=== PATIENT | female | born 1960 | race Caucasian/White ===

== ENCOUNTER → 2017-07-22 12:07 | Outpatient (CLI) | payer OTHER, SELFPAY ==
--- NOTE | 2017-07-22 12:13 | BI_ITS ---
MAMMOGRAPHY - BILATERAL SCREENING REASON FOR EXAM: Female, 57 years old. Routine annual screening examination. PERTINENT HISTORY: Mother with breast cancer. TECHNIQUE: Digital bilateral breast stefania (3D mammographic acquisition) in the CC and MLO projections. 2-D mediolateral oblique (MLO) and craniocaudad (CC) views of both breasts were obtained. CAD: Full Field Digital Mammography with Computer Added Detection was performed. COMPARISON: Comparison is made with prior study dated June 01, 2016 and May 19, 2015. FINDINGS: Breast Composition: There are scattered areas of fibroglandular density. There are no dominant masses or suspicious calcifications. No other significant abnormalities are identified. There has been no significant change since the prior study. BI/SCREENING MAMM (CAD), BILAT IMPRESSION: Stable bilateral screening mammogram. Yearly follow-up mammogram recommended. (A) ASSESSMENT CATEGORY: BIRADS Category 1: Negative. A letter regarding these results will be sent to the patient by the facility within 30 days. Approximately 10% of breast cancers are not detected by mammography. A normal mammogram should not delay biopsy of a clinically suspicious abnormality. [id number] Electronically Signed: Lowell Fall MD at 13:42 EDT Tel [phone], Service support ,
== END ==
PROVIDERS: Family Provider Internal Medicine; PCP Internal Medicine; Visit Provider Internal Medicine
DX: Z12.31 Encounter for screening mammogram for malignant neoplasm of breast (principal)
CPT/HCPCS: 77063; 77067

== ENCOUNTER → 2017-07-23 13:01 | Outpatient (CLI) | payer OTHER, SELFPAY ==
--- NOTE | 2017-07-23 13:07 | BD_ITS ---
STUDY: DUAL ENERGY X-RAY ABSORPTIOMETRY / DXA REASON FOR EXAM: Female, 57 years old. The patient is postmenopausal. No loss of height. TECHNIQUE: Bone Mineral Density (BMD) measurements of lumbar spine and bilateral hips were obtained. COMPARISON: Comparison is made with prior study dated June 09, 2008. FINDINGS: Lumbar Spine (L1-L4): g/cm2 (1.051) / T-score (-1.1) / Z-score (-0.2) Findings are suggestive of osteopenia with a moderate fracture risk. Left Femur Total: g/cm2 (0.854) / T-score (-1.2) / Z-score (-0.5) Left Femoral Neck: g/cm2 (0.741) / T-score (-2.1) / Z-score (-1.1) Right Femur Total: g/cm2 (0.762) / T-score (-1.9) / Z-score (-1.2) Right Femoral Neck: g/cm2 (0.660) / T-score (-2.7) / Z-score (-1.7) The T-Scores on the most recent prior examination were: Lumbar Spine (L1-L4): There has been worsening of bone density since the previous examination. Left Femur Total: which represents an improvement of 2.6%. Right Femur Total: which represents a worsening of 5.7%. BD/Dexa Bone Density Study IMPRESSION: The patient is considered osteoporotic as outlined below according to World Andres Organization (WHO) criteria with a high fracture risk. There has been worsening of bone density since the previous examination. Reference Information: The T-score is the number of standard deviations above or below the standard which is normal for young adults at their peak bone mineral density. The World Health Organization (WHO) interprets the T-scores as follows: Above -1 Normal bone density Between -1 and -2.5 Osteopenia Equal to / or below -2.5 Osteoporosis As a practical clinical guideline, osteopenia may be graded as follows: Mild -1 through -1.5 Moderate -1.6 through -2.0 Severe -2.1 through -2.4 The Z-score is the number of standard deviations above or below age-matched controls. A Z-score of less than -1.5 would be considered abnormal. References: 1. NIH Osteoporosis and Related Bone Diseases http://www.osteo.org 2. International Society for Clinical Densitometry http://www.iscd.org 3. National Osteoporosis Foundation http://www.nof.org Electronically Signed: Lowell Fall MD at 8:13 EDT Tel [phone], Service support ,
== END ==
PROVIDERS: Family Provider Internal Medicine; PCP Internal Medicine; Visit Provider Internal Medicine
DX: Z78.0 Asymptomatic menopausal state (principal)
CPT/HCPCS: 77080